=== PATIENT | female | born 1950 | race Caucasian/White ===

== ENCOUNTER → 2019-08-29 | Day surgery (SDC) | payer OTHER ==
--- NOTE | 2019-08-29 22:56 | OP ---
DATE OF OPERATION: 08/09/2019 PREOPERATIVE DIAGNOSIS: Right retroareolar nodule. POSTOPERATIVE DIAGNOSIS: Right retroareolar nodule. PROCEDURE: Right ultrasound guide core biopsy with clip placement. ANESTHESIA: Local. ATTENDING SURGEON: Aman Payne MD. ESTIMATED BLOOD LOSS: Minimal. COMPLICATIONS: None. DESCRIPTION OF PROCEDURE: DESCRIPTION OF PROCEDURE: Patient was made aware of the risks and benefits of the procedure and consented. She was placed in supine position. Under sterile conditions with 2% lidocaine for local anesthesia, a small jose ramon was made in the skin. Using a 13 gauge suction biopsy device, inferolateral approach, under ultrasound guidance multiple cores were obtained and submitted to pathology. Likewise under ultrasound guidance, a U-shaped clip was placed into the biopsy region. Well tolerated by the patient. Steri-Strips and a sterile bandage were then applied. Will contact her with results. AMAN PAYNE M.D. [id number]
--- NOTE | 2019-08-30 16:39 | PATH ---
Surgical Pathology Report Patient Name: ARCHIE WINTERS [facility]. Rec. #: [id number] /Age/Gender: 1950 (Age: 68) / F Account: [id number] Location: [facility] Taken: 08/29/2019 Received: 08/29/2019 Reported: 08/30/2019 Physicians: Aman Payne M.D. Specimen(s) Received RIGHT BREAST RETRO CORE BIOPSY Clinical History Nonpalpable lesion Ultrasound findings: Suspicious Final Diagnosis BREAST, RIGHT, RETRO, CORE BIOPSY: BENIGN BREAST TISSUE SHOWING STROMAL FIBROSIS, FOCAL SCLEROSING ADENOSIS AND FOCAL USUAL DUCTAL HYPERPLASIA (UDH). Electronically Signed Tiny Palencia M.D. Gross Description Received in formalin labeled "right breast retro," are 7 lowe-yellow, cylindrical portions of fibroadipose tissue ranging from 0.5-2.0 cm in length and averaging 0.2 cm in diameter. The specimens are submitted in toto in 2 cassettes. Time to formalin fixation: < 1 minute Total formalin fixation time: Approximately 8 hours. /08/29/2019 [facility]/08/29/2019
== END | disposition home or self-care (01) ==
LOC: FRADUS-SUR 08:04
PROVIDERS: ATTEND Surgery Surgical Oncology
PROC: 0HBT3ZX Excision of Right Breast, Percutaneous Approach, Diagnostic (ICD-10-PCS; principal; 2019-08-29)
DX: N63.41 Unspecified lump in right breast, subareolar (principal); N60.21 Fibroadenosis of right breast; N60.31 Fibrosclerosis of right breast; N60.81 Other benign mammary dysplasias of right breast
CPT/HCPCS: 19083; 87899; 88305-TC; A4648